=== PATIENT | female | born 1970 | race Caucasian/White ===

== ENCOUNTER 2023-10-12 09:10 | Outpatient (RCR) | payer OTHER, SELFPAY | END 2023-10-12 23:59 | disposition home or self-care (01) | LOC: RPT 09:10 | PROVIDERS: ATTENDING PHYSICIAN Nurse Practitioner Family | DX: M79.12 Myalgia of auxiliary muscles, head and neck (principal); R29.3 Abnormal posture; R68.84 Jaw pain | CPT/HCPCS: 97112; 97162 ==

== ENCOUNTER 2023-10-16 15:12 | Outpatient (RCR) | payer OTHER, SELFPAY | END 2023-10-16 23:59 | disposition home or self-care (01) | LOC: RPT 15:12 | PROVIDERS: ATTENDING PHYSICIAN Nurse Practitioner Family | DX: M79.12 Myalgia of auxiliary muscles, head and neck (principal); R29.3 Abnormal posture | CPT/HCPCS: 97010; 97110; 97112; 97140 ==

== ENCOUNTER → 2025-04-16 12:36 | Outpatient (REF) | payer OTHER, SELFPAY | LOC: WDC 12:36 | PROVIDERS: ATTENDING PHYSICIAN Obstetrics & Gynecology Gynecology; FAMILY PHYSICIAN Internal Medicine | DX: Z12.31 Encounter for screening mammogram for malignant neoplasm of breast (principal) | CPT/HCPCS: 77063; 77067 ==